=== PATIENT | male | born 1960 | race Caucasian/White ===

== ENCOUNTER 2020-02-04 09:09 | Outpatient (CLI) | payer BC, SELFPAY ==
--- NOTE | 2020-02-04 09:18 | XR_ITS ---
WS: [id number] CERVICAL SPINE TECHNIQUE: 3 views of the cervical spine CLINICAL INFORMATION: ACUTE NECK PAIN/MUSCLE SPASM,TRAPEZIUS COMPARISON: None. FINDINGS: Straightening of the normal cervical lordosis. Slight retrolisthesis C5 on C6 and C6 on C7. 2.6 mm an terolisthesis C3 on C4. Spondylitic changes with disc space narrowing and anterior hypertrophic blanton es worse at C5-C7. Normal C1-C2 articulation. Moderate facet arthropathy. XR/XR cervical spine 3V* [id number] IMPRESSION: 1. Straightening of the normal cervical lordosis with moderate spondylitic jennifer nges. 2. Slight anterolisthesis C3 on C4 measuring 2.6 mm. 3. Disc space narrowing with spondylitic changes worse at C5-C7.
== END 2020-02-04 09:10 | disposition home or self-care (01) ==
LOC: RADWPI 09:17
PROVIDERS: Family Provider Family Medicine; PCP Electrodiagnostic Medicine; Visit Provider Electrodiagnostic Medicine
DX: M47.892 Other spondylosis, cervical region (principal); M54.2 Cervicalgia
CPT/HCPCS: 72040

== ENCOUNTER 2021-01-06 09:05 | Outpatient (CLI) | payer OTHER, SELFPAY ==
--- NOTE | 2021-01-06 09:20 | XR_ITS ---
WS: [id number] HIP WITH PELVIS LEFT TECHNIQUE: 3 views of the left hip with pelvis CLINICAL INFORMATION: LEFT HIP PAIN COMPARISON: None. FINDINGS: Mild degenerative arthritis left hip. No acute fractures. Normal visualized left pubic rami. Vascular calcification. XR/XR hip LT 2-3V wo/w pel* [id number] IMPRESSION: Mild degenerative arthritis left hip. No acute fractures.
== END 2021-01-06 09:06 | disposition home or self-care (01) ==
LOC: RADWPI 09:09
PROVIDERS: PCP Electrodiagnostic Medicine; Visit Provider Electrodiagnostic Medicine
DX: M16.12 Unilateral primary osteoarthritis, left hip (principal)
CPT/HCPCS: 73502

== ENCOUNTER → 2022-11-04 12:29 | Outpatient (BNVA) | payer OTHER, SELFPAY | PROVIDERS: PCP Electrodiagnostic Medicine; Referring Provider Nurse Practitioner Family; Visit Provider Specialist | DX: M25.511 Pain in right shoulder (principal); M19.011 Primary osteoarthritis, right shoulder | CPT/HCPCS: 73030 ==

== ENCOUNTER 2022-11-04 14:10 | Outpatient (CLI) | payer OTHER, SELFPAY | END 2022-11-04 14:11 | disposition home or self-care (01) | LOC: SPT 14:11 | PROVIDERS: PCP Electrodiagnostic Medicine; Visit Provider Specialist | DX: Z46.89 Encounter for fitting and adjustment of other specified devices (principal); S40.011D Contusion of right shoulder, subsequent encounter; X58.XXXD Exposure to other specified factors, subsequent encounter | CPT/HCPCS: 97760; L3670 ==

== ENCOUNTER → 2023-10-12 12:28 | Outpatient (BNVA) | payer OTHER, SELFPAY | PROVIDERS: PCP Electrodiagnostic Medicine; Visit Provider Internal Medicine | DX: R07.9 Chest pain, unspecified (principal); Z95.0 Presence of cardiac pacemaker | CPT/HCPCS: 93005 ==

== ENCOUNTER 2023-10-21 09:44 | Outpatient (CLI) | payer OTHER, SELFPAY ==
--- NOTE | 2023-10-21 10:15 | USCV_ITS ---
Alber Conner Age: 63 Gender: M : 1960 Exam Date: 10/21/2023 10:02 Ordering Phys: Elmer Yeh M.D ([email or web address]) Technologist: Toro Flores [place] [facility] [place]: chest pain, sob BP: 132 / 76 HR: 83 Rhythm: Sinus Technical Quality: Adequate MEASUREMENTS (Male / Female) Normal Values 2D ECHO LV Ejection Fraction MOD 2C 64.9 % LV Ejection Fraction 2C AL 66.2 % LA Diameter 3.2 cm LA Width 3.1 cm LA Height 4.0 cm RA Width 3.3 cm RA Height 4.4 cm Aorta at Sinotubular Diameter 2.1 cm IVC Diameter 1.5 cm M-MODE Aortic Annulus Diameter 2.5 cm LA Ao Ratio MM 1.3 MV E Point Septal Separation 0.4 cm DOPPLER AV Peak Velocity 154.3 cm/s LVOT Peak Velocity 73.0 cm/s MV Peak Velocity 89.0 cm/s MV Area PHT 5.0 cm squared Mitral E to A Ratio 0.9 MV E' Velocity 37.0 cm/s Mitral E to MV E' Ratio 7.5 Mitral E to LV E' Lateral Ratio 7.5 Mitral E to LV E' Septal Ratio 7.5 TR Peak Velocity 228.4 cm/s TR Peak Gradient 20.9 mmHg TR Mean Velocity 182.1 cm/s TR Mean Gradient 14.5 mmHg TR Velocity Time Integral 53.2 cm Right Atrial Pressure 3.0 mmHg Pulmonary Artery Systolic Pressu 23.9 mmHg PV Peak Velocity 125.7 cm/s RV Acceleration Time 0.1 s RV Ejection Time 0.3 s RV AcT/ET 0.5 FINDINGS Left Ventricle Left ventricle is normal in size. LV systolic function is normal with EF of 60 to 65%. No regional wall motion abnormalities are seen. Grade 1 diastolic dysfunction Right Ventricle Normal in size and function Right Atrium Normal in size Left Atrium Normal in size Mitral Valve Structurally normal mitral valve. Mild mitral regurgitation Aortic Valve Structurally normal aortic valve. No significant stenosis or regurgitation. Tricuspid Valve Trace tricuspid regurgitation. Insufficient TR jet to calculate RVSP Pulmonic Valve Not well-visualized Pericardium Normal Aorta Normal in size IVC Appears to be normal CONCLUSIONS LV systolic function is normal with EF of 60 to 65%. Grade 1 diastolic dysfunction. Mild mitral regurgitation. Trace tricuspid regurgitation. No comparison studies are available Elmer Yeh MD (Electronically Signed) Final Date: 25 October 2023 15:26 S
== END 2023-10-21 09:45 | disposition home or self-care (01) ==
LOC: RAD 09:45
PROVIDERS: PCP Electrodiagnostic Medicine; Visit Provider Internal Medicine
DX: I08.1 Rheumatic disorders of both mitral and tricuspid valves (principal); R07.9 Chest pain, unspecified
CPT/HCPCS: 93306

== ENCOUNTER 2023-10-24 09:33 | Outpatient (CLI) | payer OTHER, SELFPAY ==
--- NOTE | 2023-10-24 | ECG_ITS ---
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 Interpretive Statements NAME OF STUDY: LEXISCAN SESTAMIBI STRESS TEST INDICATION: [Chest Pain] Procedure: At the baseline, the blood pressure was 127/69 mmHg with a heart rate of 69bpm. The electrocardiogram showed ectopic atrial rhythm, normal axis with normal ST and T's. The Lexiscan was infused over a period of 20 seconds. A total of 0.4 mg of Lexiscan was infused. The stress phase was continued for a total of 5 minutes. Heart rate was at the end of stress phase was 92 bpm and a blood pressure of 131/68 mmHg. The EKG at the peak infusion revealed normal sinus rhythm with no significant ST-T wave changes. Sestamibi was injected 20 seconds after the Lexiscan infusion. Blood pressure at the end of recovery phase was 136/64 mmHg with a heart rate of 85 bpm. Conclusion: 1. Normal EKG response to Lexiscan infusion 2. No Lexiscan induced chest pain or cardiac arrhythmia. 3. Normal blood pressure and heart rate response. 4. Sestamibi/sestamibi perfusion scan pending; see separate report. Electronically Signed On 11-22-2023 15:45:30 CONFIGURATION MANAGEMENT SPECIALIST by Elmer Yeh M.D. [email or web address]
[2023-10-24 09:54] VITALS: BMI 31.6
--- NOTE | 2023-10-24 10:14 | NMCV_ITS ---
NM jamila perf SPECT r/s* [id number] Alber Conner Age: 63 Gender: M : 1960 Exam Date: 10/24/2023 10:35 Ordering Phys: Elmer Yeh M.D ([email or web address]) Technologist: SAMUEL Jauregui Exam Location: [facility] Indications: CHEST PAIN STRESS TEST Please see separate stress test report in [facility] for full findings IMAGE PROTOCOL Rest/Stress 1 Lexiscan Day Radiopharmaceutical Dose (mCi) Administration Site Administered by Rest: Tc-99m 10.8 IV SAMUEL Dowd Sestamibi Stress:Tc-99m 32.5 IV SAMUEL Dowd Sestamibi Rest: 24-Oct-2023 60 Discovery 630 Stress: 24-Oct-2023 30 Discovery 630 0.4mg Lexiscan. Supine position only as patient was unable to lay prone. SPECT RESULTS Technical Quality: Excellent Raw Data Analysis: Normal Image Corrections: No attenuation or motion correction applied Summed Stress Score: 7 Summed Rest Score: 5 Summed Difference Score: 2 PERFUSION FINDINGS There is a medium to large sized partially reversible perfusion defect noted in the inferolateral wall. 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 FUNCTIONAL RESULTS (calculated via Gated SPECT) Stress Image LV EF (%): 71 Stress EDV (mL):93 TID: 1 Stress ESV (mL):27 FUNCTIONAL FINDINGS: There is normal left ventricular systolic function. IMPRESSIONS 1. Abnormal myocardial perfusion imaging with medium to large sized area of prior infarct with marisa-infarct ischemia seen in the left circumflex artery territory. 2. LV systolic function is normal Elmer Yeh MD (Electronically Signed) Final Date: 24 October 2023 12:36 S
[2023-10-24] MEDS: regadenoson 0.4 Mg/5 ml Syringe IVP (11:21)
[2023-10-24 11:43] VITALS: BP 138/74; PULSE 72
== END 2023-10-24 09:34 | disposition home or self-care (01) ==
PROVIDERS: PCP Electrodiagnostic Medicine; Visit Provider Internal Medicine
DX: R07.9 Chest pain, unspecified (principal); R94.39 Abnormal result of other cardiovascular function study; I25.2 Old myocardial infarction
CPT/HCPCS: 36415; 78452; 93017; 96374; A9500; J2785

== ENCOUNTER 2023-11-11 09:20 | Outpatient (CLI) | payer OTHER, SELFPAY ==
[2023-11-11 10:25] LABS: Basophils % 0.4 %; Eosinophils # 0.1 10^3/uL (0.0-0.8); Eosinophils % 0.5 %; Hematocrit 40.9 % (37-53); Lymphocytes # 2.8 10^3/uL (0.8-4.8); Lymphocytes % 29.4 %; Mean Corpuscular Hemoglobin 32.2 pg (27-33); Mean Corpuscular Volume 94.7 fl (82-101); Mean Platelet Volume 8.7 fL (7.4-10.4); Monocytes # 0.8 10^3/uL (0.2-0.9); Monocytes % 8.5 %; Neutrophils # 5.72 10^3/uL (1.8-7.7); Nucleated Red Blood Cells % 0 %; Platelet Count 270 10^3/cmm (157-399); Red Blood Count 4.32 10^6/uL (3.85-5.65); Red Cell Distribution Width 12.5 % (12.1-15.1); White Blood Count 9.39 10^3/uL (3.29-11.43)
[2023-11-11 10:40] LABS: INR 0.92 (0.83-1.21); Prothrombin Time (Patient) 12.6 Seconds (12.0-15.1)
[2023-11-11 10:43] LABS: Blood Urea Nitrogen 22 mg/dL (8-23); Calcium 9.3 mg/dL (8.5-10.5); Carbon Dioxide 25 mmol/L (22-29); Chloride 103 mmol/L (98-107); Glomerular Filtration Rate 98.3 mL/min (90-130); Glucose 102 mg/dL (65-115); Osmolality Calculated 294 mOsm/kg (285-295); Sodium 140 mmol/L (136-145)
== END 2023-11-11 09:21 | disposition home or self-care (01) ==
PROVIDERS: PCP Electrodiagnostic Medicine; Visit Provider Internal Medicine
DX: I10 Essential (primary) hypertension (principal); R94.39 Abnormal result of other cardiovascular function study; R07.9 Chest pain, unspecified
CPT/HCPCS: 80048; 85025; 85610

== ENCOUNTER 2023-11-15 05:43 | Outpatient (CLI) | payer OTHER, SELFPAY ==
[2023-11-15] VITALS (16 sets, daily range): BP systolic 104–129; BP diastolic 62–91; PULSE 74–90; RESP 14–22; TEMP 36.9; O2SAT 92–97; BMI 31.6
--- NOTE | 2023-11-15 06:00 | XACV_ITS ---
Exam Room: 2 Ht: 168 cm Wt: 89 kg BSA: 2.06 m2 Gender: Male : 1960 Any Known Allergies: No known allergies Exam Priority: Routine Procedure(s): Procedure Description: Diagnostic procedure Procedure Description: Left Heart Catheterization Procedure Description: Left ventriculography Procedure Description: Coronary Angiography Diagnostic Cath Status: Elective Diagnostic Findings * Indication: 63-year-old man with past medical history of hypertension who has been having on and off chest pressure symptoms. Stress test showed prior infarct with marisa-infarct ischemia in left circumflex artery territory. He is also scheduled to have shoulder surgery done. We will proceed with coronary angiography with possible PCI. * No significant disease noted in the Left Main, Left Anterior Descending, Right, or Circumflex coronary arteries. * Coronary angiography shows right dominance. Conclusions 1. No significant disease noted in the Left Main, Left Anterior Descending, Right, or Circumflex coronary arteries. 2. Normal left ventricular systolic function. Ejection fraction of 60%. Recommendations * Aggressive risk factor modification. * Outpatient cardiology follow up in 4 weeks. Interventional RX Recommendation: medical therapy and/or counseling Diagnostic RX Recommendation: medical therapy and/or counseling Anticoagulation: Heparin Ventriculography Ejection Fraction: 60.0 % Pressures Phase:Rest AO : 79 / 63 ( 71 ) @ 8:07:00 AM 123 / 75 ( 94 ) @ 8:14:00 AM LV : 134 / -3 / 15 @ 8:13:00 AM 139 / 3 / 24 @ 8:14:00 AM 139 / 4 / 24 @ 8:14:00 AM Valves Phase:DefaultPhase AV : 16.0 @ 8:31:14 AM AV Mean Gradient: 18.0 @ 8:31:14 AM 18.0 @ 8:31:14 AM Clinical Evaluation EBL: 5mL-10mL Procedural Details Procedure Consent Obtained. Current Diagnosis : Chest Pain. Pre-Procedure Time Out. Identified patient by full name and date of as verbalized by the patient/guarantor. Does the consent match the physician's order: Yes. Accurate & Complete Informed Consent: Yes. Inpatient/Outpatient History & Physical on Chart: Yes. If H&P is completed, is and addenduem needed: Yes; If yes, is the addendum complete: Yes. Visualize and Verify Site with Patient/Guarantor: N/A. Relevant Radiology Images available: Yes. Pre-op teaching completed and patient verbalized understanding. The risks, benefits, and alternatives of sedation and/or procedure were discussed by physician. The patient agrees to continue. Procedure started. Physician arrived. [facility] Clinical Fraility Score: 3: Managing Well. Wire Drawing Machine Operator Indications: Other. Chest Pain Symptom Assessment: Atypical Angina. Correct patient, site and procedure confirmed by cath team. Current diagnosis: Chest Pain. PERRLA. Strong, equal hand milk treater bilaterally. Lungs clear x 5 lobes. IV Site on Arrival: 20 gauge in the right anticubital. IV Fluids: 0.9% NaCl at KVO. 0 mL infused prior to laborer powerhouse. Pre Procedural Pulses: bilateral dorsalis pedis was 3+. Pre Procedural Pulses: bilateral posterior tibial was 3+. Pre Procedural Pulses: bilateral radial was 3+. Oxygen started at 2liters/min via nasal canula. right groin was prepped with chloroprep then draped in the usual sterile fashion. right radial was prepped with chloroprep then draped in the usual sterile fashion. Baseline sample Acquired. HR: 73 BPM. Physician scrubbed in. Immediate Pre-Procedure Time Out. Correct Patient: Yes; Correct Procedure: Yes; Correct Site: Yes; Correct Patient Position: Yes; Correct Supplies: Yes; Dried Flammable Prep: Yes; Blood Products Available: N/A;. Lidocaine 1% infiltrated to the right radial. Arterial access obtained. A 5 [place] TIG catheter in over wire. Multiple views taken of left coronary artery. Catheter removed over the exchange wire. A 5 [place] JR4 catheter in over wire. Multiple views taken of right coronary artery. Catheter removed over the exchange wire. A 5 [place] Angled Pig catheter in over wire. EDP Sample taken: LV 134/-4,15; HR: 91 BPM; SpO2: 95%. LV gram performed in TARIQ @ 10 mL/second for a total of 30 mL. EDP Sample taken: LV 139/3,24; HR: 84 BPM; SpO2: 98%. Pullback taken: LV 139/4,24; AO 123/75(94); Mean: 18mmHg, Peak to Peak: 16mmHg, SEP: 8sec/min; HR: 84 BPM; SpO2: 98%. Catheter removed over the exchange wire. A TR Band was successful obtaining hemostatsis at the Right Radial artery insertion site. Post Procedure: Pulses reassessed and unchanged. PERRLA. Strong, equal hand milk treater bilaterally. No VTE prophylaxis required. Medication's Wasted: Nitro = 49.8 mg. Medication's Wasted: Heparin = 1000 units. Vital chart was stopped. Total IV fluids: 100 mL. Complications: None. Estimated blood loss: 5mL-10mL. Responsiveness - Normal response to verbal stimuli; alert and oriented, PERRLA. Airway - Unaffected, no intervention required; spontaneous ventilation. Circulation: W/N/L, pulses unchanged. Nausea/Vomiting: No. Procedure completed. Patient transferred by wheelchair to CPRU. Access Site Site: Right Radial artery Sheath Size: 6 Fr Hemostasis Method: TR Band Hemostasis Success: Successful Procedure Medications Start: 7:57 AM Stop: 7:57 AM Medication: Versed Amount: 1 mg Route: I.V. Start: 7:57 AM Stop: 7:57 AM Medication: Fentanyl Amount: 50 mcg Route: I.V. Start: 8:03 AM Stop: 8:03 AM Medication: Versed Amount: 1 mg Route: I.V. Start: 8:03 AM Stop: 8:03 AM Medication: Fentanyl Amount: 50 mcg Route: I.V. Start: 8:06 AM Stop: 8:06 AM Medication: Heparin Amount: 5000 units Route: I.V. Start: 8:04 AM Stop: 8:04 AM Medication: Nitrogylcerin Amount: 200 mcg Route: I.A. I, the attending physician, have reviewed and verified all procedure medications. Yes, all medications given per verbal order History/Risk Factors Hypertension: Yes Dyslipidemia: Yes Peripheral Arterial Disease (PAD): No Myocardial Infarction (TN): No Obesity: No Renal Disease: No Tobacco Use: Former Prior Interventions PCI: No CABG: No Valve Surgery: No Report Signatures Finalized by Elmer Yeh MD on 11/29/2023 05:06 PM
[2023-11-15] MEDS: aspirin 325 mg Tablet PO (06:43)
[2023-11-15] MEDS: diphenhydrAMINE 50 mg Capsule PO (06:44)
--- NOTE | 2023-11-15 07:59 | P.HP_ITS ---
Same Day Surgery H&P Indication for Procedure/HPI DATE OF PROCEDURE: November 15, 2023 CHIEF COMPLAINT/INDICATIONFOR SURGICAL PROCEDURE: Chest pain/abnormal stress test PREOP DIAGNOSIS: Chest pain/ abnormal stress test PLANNED PROCEDURE: Operation Date: 11/15/23 07:00 Proposed Procedures p Left heart cath 21089,R94.39(Left) - Elmer Yeh M.D 63-year-old man with past medical history of hypertension who has been having on and off chest pressure symptoms. Stress test showed prior infarct with marisa- infarct ischemia in left circumflex artery territory. He is also scheduled to have shoulder surgery done. We will proceed with coronary angiography with possible PCI. Medications/Allergies* Home Medications Medication Instructions Recorded Confirmed Type One A Day Multivitamin 1 tab PO DAILY 10/12/23 11/15/23 History atorvastatin 40 mg tablet 40 mg PO DAILY 10/12/23 11/15/23 History baclofen 10 mg tablet 10 mg PO BID 10/12/23 11/15/23 History celecoxib 200 mg capsule 200 mg PO BID 10/12/23 11/15/23 History lisinopril 5 mg tablet 5 mg PO BID 10/12/23 11/15/23 History trazodone 100 mg tablet 100 mg PO DAILY 10/12/23 11/15/23 History Allergies/Adverse Reactions Allergy/AdvReac Type Severity Reaction Status Date / Time No Known Allergies Allergy Verified 10/24/23 09:54 Current Medications: Generic Name Dose Route Start Last Admin Trade Name Freq PRN Reason Stop Dose Admin Sodium Chloride 1,000 mls @ 50 mls/hr 11/15/23 06:00 11/15/23 06:44 Sodium Chloride 0.9% IV 11/16/23 01:59 Not Given .Q20H ONE Pertinent History/Comorbid Conditions* Social History Smoking and tobacco/nicotine status: former use of tobacco/nicotine Pertinent Exam Findings alert, oriented x 3, clear to auscultation bilaterally and regular rate & rhythm Conscious Sedation Assessment PATIENT ASSESSED PRIOR TO SEDATION, WITH NO CHANGE NOTED: Yes AIRWAY EVAL/ANESTHESIA PLAN: normal airway, ASA III, Local Anesthesia, Risks, be nefits & alternatives of sedation and/or procedure discussed and Patient agrees to continue as planned ADDITIONAL INFORMATION: Moderate sedation Recommendations Surgery/Procedure today (Left heart cath with possible percutaneous coronary intervention) Coding Level of Care Code Acute Code for g [id number]
== END 2023-11-15 12:15 | disposition home or self-care (01) ==
PROVIDERS: PCP Electrodiagnostic Medicine; Visit Provider Internal Medicine
DX: R07.89 Other chest pain (principal); I10 Essential (primary) hypertension; E78.5 Hyperlipidemia, unspecified; Z87.891 Personal history of nicotine dependence
CPT/HCPCS: 36415; 93458; 96361; 96365; 99152; 99153; C1769; C1887; C1894; J1644; J2250; J3010; J3490; J7030; Q0163; Q9967